=== PATIENT | female | born 1970 | race Caucasian/White ===

== ENCOUNTER → 2018-10-05 | Outpatient (CLI) | payer MEDICAID, SELFPAY ==
[2018-10-05 08:59] VITALS: BMI 41.8
[2018-10-05 10:15] LABS: Absolute Lymphocyte Count 2.31 X10^3/ul (0.83-4.51); Absolute Neutrophil Count 4.7 X10^3/uL (2.0-7.7); Basophil# 0.03 X10^3/uL; Basophil% 0.4 % (0-1); Eosinophil# 0.84 X10^3/uL; Eosinophils% 10.1 % (0-5); Hematocrit 43.6 % (37-47); Hemoglobin 14.8 g/dl (12.0-15.0); Lymphocyte # 2.31 X10^3/ul (4.0); Lymphocyte % 27.9 % (19-41); Mean Corp Hgb Conc 33.9 g/gl (32-36); Mean Corpuscular Hgb 30.9 pg (27.0-32.0); Monocyte# 0.42 X10^3/uL; Monocyte% 5.1 % (0-10); Neutrophil # 4.68 X10^3/uL (2.7-7.7); Neutrophil % 56.4 % (47-70); Platelet Count 210 K/mm3 (150-450); RBC Distribution Width CV 13.3 % (11.6-14.6); Red Blood Count 4.79 M/mm3 (4.2-5.4); White Blood Count 8.3 K/mm3 (4.4-11.0)
[2018-10-05 10:18] LABS: POSITIVE COUNT NO; POSITIVE DIFFERENTIAL NO; POSITIVE MORPHOLOGY NO
[2018-10-12 03:06] LABS: Alternaria tenuis 1.52 kU/L (Class III); Aspergillus fumigatus <0.10 kU/L (Class 0); Aspirgillus flavus Negative (Neg:<1:1); Aspirgillus fumigatus Negative (Neg:<1:1); Aspirgillus niger Negative (Neg:<1:1); Bermuda Grass 7.95 kU/L (Class IV); Cat Hair / Dander,Stand 2.93 kU/L (Class III); Cedar, Mountain 1.55 kU/L (Class III); Cladosporium herbarum <0.10 kU/L (Class 0); Cockroach, American <0.10 kU/L (Class 0); Cottonwood 4.22 kU/L (Class IV); D farinae Mite <0.10 kU/L (Class 0); D pteronyssinus <0.10 kU/L (Class 0); Dog Epithelia 3.67 kU/L (Class III); Elm, American White 4.78 kU/L (Class IV); Immunoglobulin E 576 IU/mL (6-495); Mulberry, White 1.15 kU/L (Class II); Pecan 6.91 kU/L (Class IV); Penicillium Notatum <0.10 kU/L (Class 0); Pigweed, Rough 6.86 kU/L (Class IV); Russian Thistle 2.93 kU/L (Class III); Sheep Sorrel 6.72 kU/L (Class IV); Sycamore, American 6.75 kU/L (Class IV); Timothy Grass 6.48 kU/L (Class IV)
[2018-10-12 08:33] LABS: Immunoglobulin E 626 IU/mL (6-495); Mouse Urine 1.16 kU/L (Class II)
== END | disposition home or self-care (01) ==
LOC: PAVLAB 09:56
PROVIDERS: Referring Provider Internal Medicine Critical Care Medicine; Visit Provider Internal Medicine Critical Care Medicine
DX: J45.909 Unspecified asthma, uncomplicated (principal)
CPT/HCPCS: 36415; 82785; 85025; 86003; 86606

== ENCOUNTER → 2019-02-22 11:10 | Outpatient (CLI) | payer MEDICAID, SELFPAY ==
[2018-10-05 08:59] VITALS: BMI 41.8
[2019-02-19 14:48] VITALS: BMI 41.8
[2019-02-22 11:15] VITALS: PULSE 100; PULSE 101; PULSE 102; PULSE 103; PULSE 99; O2SAT 95; O2SAT 96; O2SAT 97; O2SAT 99
--- NOTE | 2019-02-22 15:52 | PCM.PSN.6M ---
PSN 6 Minute Walk Test - 6 Minute Walk Test 6 Minute Walk Test: 6 Minute Walk Test PSN:6-Minute Walk Test Start: 02/22/19 11:25 Freq: Status: Active Protocol: RESP.6MINW Document 02/22/19 11:15 HG (Rec: 02/22/19 11:27 HG [id number]) 6 Minute Walk Test Date Performed 02/22/19 Time Performed 11:15 Height 5 ft 4 in Weight: 104.326 kg Weight in Pounds 230.[address]: Kyle Dudley Assistive device used: None Pre-test Oxygen Delivery Method Room Air Pulse Ox (%) 97 Pulse Rate (60-100 beats/min) 99 Dyspnea Bao Scale (0-10) 1 Exertion Bao Scale (6-20) 6 1st minute Oxygen Delivery Method Room Air Pulse Ox (%) 96 Pulse Rate (60-100 beats/min) 101 H 2nd minute Oxygen Delivery Method Room Air Pulse Ox (%) 96 Pulse Rate (60-100 beats/min) 100 3rd minute Oxygen Delivery Method Room Air Pulse Ox (%) 95 Pulse Rate (60-100 beats/min) 100 4th minute Oxygen Delivery Method Room Air Pulse Ox (%) 97 Pulse Rate (60-100 beats/min) 102 H 5th minute Oxygen Delivery Method Room Air Pulse Ox (%) 97 Pulse Rate (60-100 beats/min) 103 H 6th minute Oxygen Delivery Method Room Air Pulse Ox (%) 96 Pulse Rate (60-100 beats/min) 99 Post-test Oxygen Delivery Method Room Air Pulse Ox (%) 99 Pulse Rate (60-100 beats/min) 99 Dyspnea Bao Scale (0-10) 3 Exertion Bao Scale (6-20) 11 Full Laps Walked 17 Partial Lap, Number of Tiles Walked 0 Total Distance Walked (ft) 1003 - Interpretation Interpretation: The patient was able to Kellee 1003 feet over the course of 6 minutes on room air with no assistive devices or breaks. The patient experience no significant desaturation, but did have mild tachycardia consistent with deconditioning. - Recommendations Recommendations: No supplemental oxygen is indicated at this time.
== END ==
PROVIDERS: Referring Provider Internal Medicine Critical Care Medicine; Visit Provider Internal Medicine Critical Care Medicine
DX: J45.909 Unspecified asthma, uncomplicated (principal)
CPT/HCPCS: 94618

== ENCOUNTER → 2019-03-29 07:09 | Outpatient (CLI) | payer MEDICAID, SELFPAY ==
[2018-10-05 08:59] VITALS: BMI 41.8
[2019-02-19 14:48] VITALS: BMI 41.8
--- NOTE | 2019-04-02 07:33 | PFT ---
INTRODUCTION: The patient is a 49-year-old female that presents for pulmonary function studies secondary to a diagnosis of asthma. Respiratory therapy reports good patient effort. Bronchodilators were used during testing. INTERPRETATION: Forced expiration spirometry demonstrates the presence of a severe large airways obstructive ventilatory defect. There was a significant response to aerosolized bronchodilators noted, based upon change in both FEV1 and FVC. Spirograms are of good quality and do not plateau indicating slow emptying of the lungs. Body plethysmography was performed and reveals lung volumes to be within normal limits. Diffusing capacity by single breath CO is at the lower limits of normal. IMPRESSION: Partially reversible severe large airways obstructive ventilatory defect with preserved lung volumes and diffusing capacity at the lower limits of normal.
== END ==
PROVIDERS: Referring Provider Internal Medicine Critical Care Medicine; Visit Provider Internal Medicine Critical Care Medicine
DX: J45.909 Unspecified asthma, uncomplicated (principal)
CPT/HCPCS: 94060; 94726; 94729

== ENCOUNTER → 2020-01-03 09:01 | Outpatient (CLI) | payer MEDICAID, SELFPAY ==
[2020-01-03 08:24] VITALS: BMI 40.5
[2020-01-03 09:20] LABS: Absolute Lymphocyte Count 2.52 X10^3/uL (0.83-4.51); Absolute Neutrophil Count 5.5 X10^3/uL (2.0-7.7); Basophil# 0.08 X10^3/uL; Basophil% 0.9 % (0-1); Eosinophil# 0.35 X10^3/uL; Eosinophils% 3.9 % (0-5); Hematocrit 44.6 % (37-47); Hemoglobin 14.9 g/dL (12.0-15.0); Lymphocyte # 2.52 X10^3/ul (4.0); Lymphocyte % 28.1 % (19-41); Mean Corp Hgb Conc 33.4 g/dL (32-36); Mean Corpuscular Hgb 30.8 pg (27.0-32.0); Mean Corpuscular Volume 92.1 fL (81-99); Monocyte# 0.52 X10^3/uL; Monocyte% 5.8 % (0-10); NRBC Flagged by Analyzer 0 % (0-5); Neutrophil # 5.48 X10^3/uL (2.7-7.7); Neutrophil % 61.1 % (47-70); Platelet Count 230 K/mm3 (150-450); RBC Distribution Width CV 12.2 % (11.6-14.6); RBC Distribution Width SD 41.5 fl (35.1-43.9); Red Blood Count 4.84 M/mm3 (4.2-5.4)
== END ==
PROVIDERS: Referring Provider Nurse Practitioner Acute Care; Visit Provider Nurse Practitioner Acute Care
DX: J45.909 Unspecified asthma, uncomplicated (principal)
CPT/HCPCS: 36415; 85025

== ENCOUNTER 2020-08-22 10:52 | Emergency (ER) | payer MEDICAID, SELFPAY ==
[2020-08-21 13:14] VITALS: BMI 43.9
[2020-08-22 10:53] VITALS: BP 145/79; PULSE 88; RESP 18; TEMP 35.7; O2SAT 94; BMI 43.7
--- NOTE | 2020-08-22 11:04 | RAD_ITS ---
STUDY: X-RAY CHEST REASON FOR EXAM: Female, 50 years old. Sob. Recent diagnosis of Covid. TECHNIQUE: Single AP portable view of the chest. COMPARISON: None. FINDINGS: The lungs are clear and expanded. There is no demonstrated pleural abnormality. Normal size heart. Normal mediastinum and abel. Normal visualized pulmonary arteries. Normal visualized aortic arch and descending thoracic aorta. Normal visualized thoracic spine. Normal visualized ribs, clavicles, and shoulders. There is no demonstrated abnormality of the visualized soft tissue structures of the upper abdomen. RAD/Chest 1 View (Portable) IMPRESSION: Normal x-ray examination of the chest. Electronically Signed: Nima Virgen MD at 12:19 EDT , Service support ,
--- NOTE | 2020-08-22 11:08 | ED.DCSUM_ITS ---
History of Present Illness Chief Complaint: Shortness of Breath Informant: Patient Onset: Days Context: Gradual Onset Timing: Intermittent Current Severity: Moderate Maximum Severity: Moderate Narrative: Patient is a 50-year-old female with medical history significant of asthma who is not on home oxygen the presents to the emergency department shortness of breath. Patient was diagnosed Covid positive on Tuesday. She was actually scheduled for outpatient antibody infusion today. She states when she woke, she had cough and felt very short of breath. She did use her inhaler which seemed to help. She discussed this with her pulmonology office who told her she should be evaluated prior to the infusion. She states that she does feel much better. She denies any chest pain. She denies orthopnea. She denies any other systemic complaints. Prior similar symptoms: No Recent Illness/Hospitalization: No Past Medical History - Allergies and Home Meds Allergies/Adverse Reactions: Allergies No Known Allergies Allergy (Verified 08/22/20 10:53) Primary Care Physician: Samir Wolfe TELECOMMUNICATION SYSTEMS DESIGNER, TELECOMMUNICATION SYSTEMS DESIGNER-C [Primary Care Provider] - Prior records reviewed: Yes Past Medical History: - - Asthma, diabetes Surgical History: noncontributory Review of Systems General: Denies: Chills, Fever, Sweats Eyes: Denies: Visual changes - bilaterally, Diplopia ENT: Denies: Rhinorrhea, Sore throat Cardiovascular: Denies: Chest pain, Palpitations Respiratory: Reports: Dyspnea, Cough. Denies: Dyspnea on exertion Gastrointestinal: Denies: Abdominal pain, Nausea, Vomiting, Diarrhea, Melena, Hematochezia Genitourinary: Denies: Dysuria, Hematuria, Frequency Musculoskeletal: Denies: Back pain, Extremity Pain Skin: Denies: Rash, Wounds Neurological: Denies: Headache, Weakness, Numbness Physical Exam Vital Signs/Narrative: Vital Signs Temp Pulse Resp BP Pulse Ox 08/22/20 10:53 96.2 F L 88 18 145/79 H 94 Inital Vital Signs reviewed: Yes General: Well nourished, Well developed, No Acute Distress Head: Normocephalic, Atraumatic Eyes: Perrl, EOMI ENT: Moist mucous membranes, No rhinorrhea Neck: Supple, Nontender Cardiovascular: Regular rate, Regular rhythm, No murmurs Respiratory: No distress, Chest nontender, Wheezing Abdomen: Soft, Nontender, Nondistended, Normal bowel sounds Back: Nontender, Normal Inspection Extremities: Nontender, No edema Skin: Normal color, No rash Neurological: Alert, Oriented x3, Cranial nerves II-XII grossly intact, Normal Strength, Normal Sensation Psychological: Normal affect, Normal Mood Diagnostic/Tx/Re-eval Chest X-Ray - ED: 1 View, Read by ED Physician, Unchanged, Normal, Heart, Lungs, Mediastinum, Bony Structures, No Acute Disease - Medical Decision Making Patient is Covid positive. She presents with cough and shortness of breath. She is not hypoxic. She does have rhonchorous lung sounds. She was given a nebulized treatment with improvement. Chest x-ray was obtained. Was read by myself and the radiologist. There is no focal infiltrative process. I do feel the patient's underlying lung disease, she would benefit from a Decadron burst. I do feel that she is safe to continue her outpatient monoclonal antibody infusions. The patient is comfortable with this plan of care. Impression 1. COVID-19 2. Bronchospasm ED Disposition - Plan for ED Patient: Instructions: Coronavirus Disease 2019 (COVID-19): Caring for Yourself or Others Prescriptions: Dexamethasone [Decadron] 6 mg PO DAILY 5 Days #5 tablet Prescription Printed Referrals: Samir Wolfe NP, TELECOMMUNICATION SYSTEMS DESIGNER-C [Primary Care Provider] -
[2020-08-22] MEDS: Ipratropium/Albuterol Sulfate 3 ML AMPUL.NEB INHALATION (11:16)
[2020-08-22 11:18] VITALS: PULSE 60; RESP 9
[2020-08-22] MEDS: dexAMETHasone 2 MG TABLET 6 MG PO (12:02)
[2020-08-22 12:04] VITALS: PULSE 69; RESP 16; O2SAT 98
[2020-08-22 12:06] VITALS: O2SAT 98
[2020-08-22 12:22] VITALS: BP 132/47; PULSE 76; RESP 20; TEMP 36.5; O2SAT 97
== END 2020-08-22 12:28 | disposition home or self-care (01) ==
LOC: ED 11:45
PROVIDERS: Emergency Provider Emergency Medicine; PCP Nurse Practitioner Primary Care
DX: U07.1 COVID-19 (principal); E11.9 Type 2 diabetes mellitus without complications; J45.909 Unspecified asthma, uncomplicated; Z79.899 Other long term (current) drug therapy
CPT/HCPCS: 71045; 94640; 99283

== ENCOUNTER 2020-08-22 14:13 | Outpatient (CLI) | payer MEDICAID, SELFPAY ==
[2020-08-21 13:14] VITALS: BMI 43.9
[2020-08-22] VITALS (7 sets, daily range): BP systolic 110–134; BP diastolic 67–84; PULSE 73–84; RESP 16–18; TEMP 36.6–37.1; O2SAT 93–95; BMI 43.7; BMI 43.6
== END 2020-08-22 16:48 | disposition home or self-care (01) ==
LOC: ICUOUT 14:14 → ICU 14:16
PROVIDERS: PCP Nurse Practitioner Primary Care; Referring Provider Nurse Practitioner Acute Care; Visit Provider Nurse Practitioner Acute Care
DX: U07.1 COVID-19 (principal)
CPT/HCPCS: 71045; 94640; 99283; J7050; M0243; Q0240

== ENCOUNTER 2020-11-13 16:21 | Inpatient (IN) | payer MEDICAID, SELFPAY ==
[2020-10-01 07:50] VITALS: BMI 43.4
[2020-11-13] VITALS (8 sets, daily range): BP systolic 153–157; BP diastolic 71–80; PULSE 84–99; RESP 18–22; TEMP 36.3–36.7; O2SAT 94–96; BMI 42.4
--- NOTE | 2020-11-13 16:14 | HP.PCM.HOS_ITS ---
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 Patient was admitted at [facility] on 11/09/2020 for shortness of breath and was managed for acute asthma exacerbation. Patient has been on IV Solu-Medrol and breathing treatments there since admission but she was not improving and was wheezing. BNP done there was only around 50 and not elevated. Since patient was not improving, she was transferred to [facility] for evaluation by her police department secretary. Patient is on Fasenra at home but states he does not think it is been helping much. Patient was very dejected because she says she has an upcoming bariatric surgery later this month at [facility] and she has to be off prednisone for at least 14 days before the surgery. She is very worried that with this asthma exacerbation not improving, she may not be able to have any surgery. She denies having any exposure to allergens at home and says she has a cath but she is no usually around the cat that much. She does not smoke and is not exposed to any secondhand smoke as well. CTA of the chest done at [facility] was negative for any evidence of PE and showed by basilar scarring with no effusion or pneumothorax. 2D echo was also done there, but reading is not yet available. She is being admitted to be managed for acute asthma exacerbation that is refractory to treatment. [facility] Medical History Asthma Bronchitis Home Medications albuterol sulfate 2.5 mg INHALATION Q6H PRN PRN ml 10/04/18 [History Last Taken Unknown] ipratropium 0.5 mg-albuterol 3 mg (2.5 mg base)/3 mL nebulization soln 3 ml INHALATION Q4H PRN PRN #180 ml 02/04/20 [Rx Last Taken Unknown] benralizumab 30 mg/mL subcutaneous auto-injector 30 mg SC Q8W #1 ml 03/24/20 [Rx Last Taken Unknown] Disability Placard #1 ea 10/01/20 [Rx Last Taken Unknown] albuterol sulfate 90 mcg/actuation aerosol inhaler 2 puff INHALATION Q4H PRN #18 g 10/21/20 [Rx Last Taken Unknown] insulin lispro protamin-lispro SUBCUT 11/13/20 [History Last Taken Unknown] Allergy/AdvReac Type Severity Reaction Status Date / Time No Known Allergies Allergy Verified 10/01/20 13:17 Surgical History H/O: hysterectomy Hernia History of adenoidectomy History of tonsillectomy Social History (Updated 11/13/20 @ 16:33 by Marybeth Dickey) household members: significant other and children pets and animals: Yes (cat) history of recent travel: Yes ([place]) Smoking Status: Former smoker Tobacco: How many years used: 6 how long ago did patient quit smokin, 1ppd second hand exposure: Yes ROS Constitutional Constitutional: Denies change in weight, chills, fatigue, fever(s), malaise or night sweats Eyes Eyes: Denies change in vision or double vision Cardiovascular Cardiovascular: Reports dyspnea on exertion; Denies chest pain, edema, lightheadedness, orthopnea, palpitations, paroxysmal nocturnal dyspnea, rapid heart rate or syncope Respiratory/Chest Respiratory/Chest: Reports cough, dyspnea, shortness of breath at rest, shortness of breath with exertion and wheezing; Denies excessive phlegm production, hemoptysis or productive cough Gastrointestinal Gastrointestinal: Denies abdominal pain, constipation or diarrhea Genitourinary Genitourinary: Denies burning urination or dysuria Musculoskeletal Musculoskeletal: Denies arthralgias or back pain Psychiatric Psychiatric: Denies anxiety or depression Endocrine Endocrinology: Denies change in body appearance Hematologic/Lymphatic Hematologic/Lymphatic: Denies anemia Allergic/Immunologic Allergic/Immunologic: Reports asthma Vital Signs Vital Signs Vital Signs: 11/13/20 16:08 Respiratory Effort Pursed Lip Respiratory Pattern Tachypnea Pulse Ox 96 Oxygen Delivery Method Room Air Weight Weight: 247 lb Body Mass Index (BMI) 42.4 Physical Exam Const alert, oriented x3 and no apparent distress General Appearance: cooperative HEENT normocephalic, head/scalp atraumatic and hearing grossly normal bilaterally Eyes PERRL, EOMs intact bilaterally and conjunctivae normal Neck no lymphadenopathy, supple and no JVD Resp Resp Narrative: mildly diminished breath sounds bibasally, very coarse rhonchi and wheezing in all lung burroughs, on room air Cardio regular rate, regular rhythm, S1 normal heart sound, S2 normal heart sound and no murmurs GI normal to inspection, nondistended, normoactive bowel sounds, soft to palpation, non-tender and non-distended Extremity normal to inspection, full ROM and no clubbing, cyanosis or edema Peripheral Pulses: Yes pulses 2+ throughout Skin no rashes or lesions noted Neuro oriented x3 Sensorium / Orientation: awake and alert Psych affect normal Assessment & Plan Assessment/Plan (1) Acute asthma exacerbation: PLAN: #Acute asthma exacerbation refractory to treatment * admitted as a transfer from [facility] * admit to med surg * start IV solumedrol 40mg q8 * breathing treatment wtih bronchodilators * consult pulmonology * diurese with IV lasix * 2D echo:done at [facility]; reading pending * continue benralizumab injections * #MARCO: on CPAP; says her machine was recently recalled. #Type 2 diabetes mellitus * on insulin lispro prn * insulin sliding scale; accuchecks ACHS #morbid obesity: * complicates acute care, prognosis and expected recovery. * Says she is scheduled for bariatric surgery at [facility] at the end of November. DVT prophylaxis: lovenox Code status: full code * Patient counseled extensively about different types of CODE STATUS including full code, DNR CCA and DNR CCA. Patient elects to be full code. Total [id number] time 16 minutes. Charges/Coding Visit Charges Inpatient E&M: 81553 Init Hosp L3 Procedures Hospitalists Procedures: 86134 Advncd Care Plan 30 Min
[2020-11-13 17:11] LABS: Bedside Glucose 268 mg/dL (70-110)
[2020-11-13 17:27] LABS: Troponin-I HS 13.6 pg/mL (3.0-53.7)
[2020-11-13] MEDS: 0.9% Saline Lock 10 ML Syringe IV ×2 (18:00→21:50)
[2020-11-13] MEDS: Furosemide 40 MG/4 ML Vial IV (18:00)
[2020-11-13 19:53] LABS: Troponin-I HS 12.2 pg/mL (3.0-53.7)
[2020-11-13] MEDS: Ipratropium/Albuterol Sulfate 3 ML AMPUL.NEB INHALATION ×2 (20:03→23:30)
[2020-11-13 21:45] LABS: Bedside Glucose 453 mg/dL (70-110)
[2020-11-13 22:18] LABS: Glucose 409 mg/dL (74-106)
[2020-11-13] MEDS: Insulin Lispro 100 UNIT/ML INSULN.PEN SC (22:23)
[2020-11-13] MEDS: MELATONIN 3 MG TABLET PO (22:27)
[2020-11-13 22:28] LABS: Troponin-I HS 10.6 pg/mL (3.0-53.7)
--- NOTE | 2020-11-13 23:55 | CPS ---
Pt. performed chest physiotherapy with PEP device after breathing tx. Pt. was able to finally cough productively (clear, creamy & thin sputum)
[2020-11-14] VITALS (16 sets, daily range): BP systolic 124–153; BP diastolic 74–113; PULSE 80–118; RESP 16–20; TEMP 36–36.9; O2SAT 93–95
[2020-11-14] MEDS: Ipratropium/Albuterol Sulfate 3 ML AMPUL.NEB INHALATION ×5 (03:14→18:45)
[2020-11-14] MEDS: Insulin Lispro 100 UNIT/ML INSULN.PEN SC ×2 (06:44→16:49)
[2020-11-14] MEDS: 0.9% Saline Lock 10 ML Syringe IV ×5 (06:45→22:48)
[2020-11-14 06:56] LABS: Absolute Lymphocyte Count 2.13 X10^3/uL (0.83-4.51); Absolute Neutrophil Count 13.1 X10^3/uL (2.0-7.7); Basophil# 0.06 X10^3/uL; Basophil% 0.4 % (0-1); Hematocrit 43.7 % (37-47); Hemoglobin 14.7 g/dL (12.0-15.0); Lymphocyte # 2.13 X10^3/ul (0.83-4.51); Lymphocyte % 12.9 % (19-41); Mean Corp Hgb Conc 33.6 g/dL (32-36); Mean Corpuscular Hgb 30.4 pg (27.0-32.0); Mean Corpuscular Volume 90.5 fL (81-99); Mean Platelet Vol. 9.9 fl (6.2-12.0); Monocyte# 0.75 X10^3/uL; Monocyte% 4.5 % (0-10); NRBC Flagged by Analyzer 0 % (0-5); Neutrophil # 13.08 X10^3/uL (2.7-7.7); Neutrophil % 79.2 % (47-70); Platelet Count 253 K/mm3 (150-450); RBC Distribution Width CV 12.8 % (11.6-14.6); RBC Distribution Width SD 42.6 fl (35.1-43.9); Red Blood Count 4.83 M/mm3 (4.2-5.4); White Blood Count 16.5 K/mm3 (4.4-11.0)
[2020-11-14 07:00] LABS: Bedside Glucose 346 mg/dL (70-110)
[2020-11-14 07:30] LABS: Anion Gap 8 (5-15); BUN 26 mg/dL (7-18); Calcium,Total 9.7 mg/dL (8.5-10.1); Chloride 99 mmol/L (98-107); Creatinine, Serum 1.13 mg/dL (0.55-1.02); EST Glomerular Filtration Rate 55 mL/min (>60); Est Glom Filt Rate - Afr Amer 66 mL/min (>60); Estimated Creatinine Clearance 52.58 ml/min; Glucose 338 mg/dL (74-106); Potassium 3.9 mmol/L (3.5-5.1); Sodium Level 133 mmol/L (136-145)
--- NOTE | 2020-11-14 09:32 | CON.PCM.CC_ITS ---
Assessment & Plan Assessment/Plan (1) Acute asthma exacerbation: (2) Seasonal allergies: (3) MARCO (obstructive sleep apnea): PLAN: RECOMMENDATIONS: 1. Await echocardiogram from [facility] 2. Initiate AutoPap therapy 3. Continue with diuretics as tolerated 4. No Biologics while hospitalized 5. Add Lantus for hyperglycemia 6. Requested images from CTA completed at [facility] for personal review IMPRESSIONS: 1. Acute asthma exacerbation Working diagnosis is acute asthma exacerbation. However, patient has re ported over the 6 months prior to hospitalization that steroids are not working anymore. This would be concerning for a secondary mimic complicating overall condition. Patient can be continued on bronchodilators and steroids for now. However work-up for mimicker such as congestive heart failure, pulmonary hypertension, vocal cord dysfunction and bronchiectasis. Patient had an echocardiogram at [facility]. Await results. Will obtain a walking oximetry to see if patient has significant desaturation with ambulation. CTA was recently completed at outside facility and did not mention bronchiectasis, but this will have to be reviewed as an outpatient. Elevated BNP is not away seen with diastolic dysfunction, so would continue with diuretics for now. 2. Uncontrolled diabetes mellitus Patient with frequent prednisone burst leading to uncontrolled diabetes mellitus. Blood sugars are currently over 300 and likely leading to an element of patient's discomfort with going home. Will initiate Lantus therapy. Sliding scale insulin in the interim. 3. Morbid obesity/uncontrolled MARCO/poor compliance with follow-up visits Complicates care, management, recovery and prognosis. Patient can be initiated on AutoPap with sleep. Patient did have significant desaturation during sleep study, which can lead to the development of diastolic dysfunction and pulmonary hypertension with noncompliance. Patient has not been following up in the office and cancels most of her appointments. Stressed the importance of outpatient follow-up to avoid inpatient hospitalizations. Patient is planning on having bariatric surgery, which should help her overall condition, but is complicated by her frequent need for steroids. HPI Consult Data Date of Consult: 11/14/20 HPI Narrative HPI Narrative: ALBERTO WONG is a 50 F, with past medical history listed below, who presents to [facility] on 11/13/2020 as a transfer from [facility] secondary to concerns for pulmonary evaluation. Patient reportedly was admitted at [facility] on 11/09/2020 secondary to shortness of breath and had been managed as an acute asthma exacerbation with steroids, bronchodilators, but no supplemental oxygen. BNP on presentation was noted to be around 50, but patient continued to have wheezing throughout the hospital stay, so requested transfer to [facility]. Patient does normally see Dr. Dudley in our office and is on Fasenra at baseline. Patient does have steroids at home and admits that she started steroids on her own prior to being hospitalized at [facility]. Patient estimates that she has been on 60 mg of prednisone for over a week without improvement. Patient denies any noxious exposures such as allergies or tobacco smoke. Patient did have a CTA at [facility] that reportedly showed no PE, but basilar scarring. Disc was not available for review. Patient reportedly had an echocardiogram completed just prior to transfer, but report was not available for review. Upon being admitted at [facility], patient did receive Lasix therapy. This morning, patient states that she is relatively unchanged compared to previous. Patient continues to have significant wheezing and no supplemental oxygen requirements. On further discussion, patient states that on the initial dose of Fasenra she felt amazing. Patient states that since that time she has had multiple episodes of shortness of breath that have not been responsive to steroid therapy. Patient also had concerns that her new CPAP machine was causing her exacerbation so she has not been overly compliant with therapy. Patient also reported concerns about having to delay her bariatric surgery secondary to need for steroid therapy. Patient states that she has been rescheduled to the end of November, but feels that she is going to have to be off of steroids soon in order to get this weight off. Patient does state that she started to use her CPAP recently to prepare for her surgery and feels that the CPAP has caused some issues with her breathing. Review of outside literature shows patient was placed on AutoPap secondary to an AHI of 32 with minimal saturations of 84%. Review of systems otherwise negative from a constitutional, HEENT, respiratory, cardiovascular, GI, genitourinary, musculoskeletal, skin, neurologic, psychia tric and hematologic system unless stated above. [facility] Medical History Asthma Bronchitis Home Medications albuterol sulfate 2.5 mg INHALATION Q6H PRN PRN ml 10/04/18 [History Last Taken Unknown] ipratropium 0.5 mg-albuterol 3 mg (2.5 mg base)/3 mL nebulization soln 3 ml INHALATION Q4H PRN PRN #180 ml 02/04/20 [Rx Last Taken Unknown] benralizumab 30 mg/mL subcutaneous auto-injector 30 mg SC Q8W #1 ml 03/24/20 [Rx Last Taken Unknown] Disability Placard #1 ea 10/01/20 [Rx Last Taken Unknown] albuterol sulfate 90 mcg/actuation aerosol inhaler 2 puff INHALATION Q4H PRN #18 g 10/21/20 [Rx Last Taken Unknown] insulin lispro protamin-lispro SUBCUT 11/13/20 [History Last Taken Unknown] Allergy/AdvReac Type Severity Reaction Status Date / Time No Known Allergies Allergy Verified 10/01/20 13:17 Surgical History H/O: hysterectomy Hernia History of adenoidectomy History of tonsillectomy Social History household members: significant other and children pets and animals: Yes (cat) history of recent travel: Yes ([place]) Smoking Status: Former smoker Tobacco: How many years used: 6 how long ago did patient quit smokin, 1ppd second hand exposure: Yes ROS ROS Narrative See HPI Physical Exam Const alert, oriented x3, no apparent distress and well nourished General Appearance: cooperative and well developed Nutritional Appearance: morbidly obese HEENT normocephalic, head/scalp atraumatic and moist oral mucous membranes Eyes PERRL and EOMs intact bilaterally Neck full ROM and no lymphadenopathy Chest inspection of chest normal Resp normal respiratory effort and no use of accessory muscles Effort and Inspection: able to speak in complete sentences and audible wheezes Auscultation: wheezes throughout and diminished lung sounds; Negative for rales or rhonchi Percussion: Negative for dullness Cardio regular rate, regular rhythm, S1 normal heart sound, S2 normal heart sound, no murmurs, no rub and no gallops Cardio Narrative: Normal sinus rhythm on telemetry GI normal to inspection, nondistended, normoactive bowel sounds no CVA tenderness Extremity General Extremity: edema bilateral lower extremity Details: trace; Negative for cyanosis Peripheral Pulses: Yes pulses 2+ throughout Skin no rashes or lesions noted Neuro oriented x3, CN's II-XII intact bilaterally, moves all extremities and no focal motor deficits Psych cooperative and affect normal Lab / Micro Data Result Diagrams: 11/14/20 06:41 11/14/20 06:41 Labs: Laboratory Results - last 24 hr 11/13/20 11/13/20 11/13/20 17:00 17:04 19:08 WBC RBC Hgb Hct MCV MCH MCHC RDW Std Deviation RDW Coeff of Rut Plt Count MPV Immature Gran % (Auto) Neut % (Auto) Lymph % (Auto) [place]osa % (Auto) Eos % (Auto) Baso % (Auto) Absolute Neuts (auto) Absolute Lymphs (auto) Nucleated RBC % Sodium Potassium Chloride Carbon Dioxide Anion Gap BUN Creatinine Estim Creat Clear Calc Est GFR (MDRD) Af Amer Est GFR (MDRD) Non-Af BUN/Creatinine Ratio Glucose Calcium Troponin I High Sens 13.6 12.2 POC Glucose 268 H 11/13/20 11/13/20 11/13/20 21:20 21:57 21:57 WBC RBC Hgb Hct MCV MCH MCHC RDW Std Deviation RDW Coeff of Rut Plt Count MPV Immature Gran % (Auto) Neut % (Auto) Lymph % (Auto) [place] % (Auto) Eos % (Auto) Baso % (Auto) Absolute Neuts (auto) Absolute Lymphs (auto) Nucleated RBC % Sodium Potassium Chloride Carbon Dioxide Anion Gap BUN Creatinine Estim Creat Clear Calc Est GFR (MDRD) Af Amer Est GFR (MDRD) Non-Af BUN/Creatinine Ratio Glucose 409 H Calcium Troponin I High Sens 10.6 POC Glucose 453 H* 11/14/20 11/14/20 11/14/20 06:41 06:41 06:43 WBC 16.5 H RBC 4.83 Hgb 14.7 Hct 43.7 MCV 90.5 MCH 30.4 MCHC 33.6 RDW Std Deviation 42.6 RDW Coeff of Rut 12.8 Plt Count 253 MPV 9.9 Immature Gran % (Auto) 3.000 H Neut % (Auto) 79.2 H Lymph % (Auto) 12.9 L [place] % (Auto) 4.5 Eos % (Auto) 0.0 Baso % (Auto) 0.4 Absolute Neuts (auto) 13.1 H Absolute Lymphs (auto) 2.13 Nucleated RBC % 0 Sodium 133 L Potassium 3.9 Chloride 99 Carbon Dioxide 26.0 Anion Gap 8 BUN 26 H Creatinine 1.13 H Estim Creat Clear Calc 52.58 Est GFR (MDRD) Af Amer 66 Est GFR (MDRD) Non-Af 55 L BUN/Creatinine Ratio 23.0 H Glucose 338 H Calcium 9.7 Troponin I High Sens POC Glucose 346 H Charges/Coding Visit Charges Inpatient E&M: 93518 Init Hosp L3
[2020-11-14] MEDS: Enoxaparin 40 MG/0.4 ML Syringe SC (09:53)
[2020-11-14] MEDS: Furosemide 40 MG/4 ML Vial IV ×2 (09:54→18:25)
--- NOTE | 2020-11-14 10:13 | NURSING ---
called [facility] and requested they send CTA records
[2020-11-14 11:41] LABS: Bedside Glucose 490 mg/dL (70-110)
--- NOTE | 2020-11-14 12:37 | PCM.PN.HOSP ---
Documented by User: Donnell CHOWDARY 11/14/20 12:52 Subjective Subjective Patient is a 50-year-old female comfortably resting in bed, alert and oriented x3. Patient still reports feeling short of breath and only reports slight improvement from admission. Denies chest pain, palpitations, sputum production, hemoptysis, fever, chills, N/V/D. Objective Data Objective Data Vital Signs: Vital Signs Temp Pulse Resp BP Pulse Ox 96.8 F L 118 H 20 H 143/113 H 93 11/14/20 09:38 11/14/20 11:31 11/14/20 11:31 11/14/20 09:38 11/14/20 09:41 Oxygen Delivery Method Room Air Weight: 247 lb Body Mass Index (BMI) 42.4 Intake & Output: Intake and Output for Last 24 Hours 11/12/20 11/13/20 11/14/20 23:59 23:59 23:59 Intake Total 800 / 800 1000 / 1000 Output Total 400 / 400 1500 / 1500 Balance 400 / 400 -500 / -500 Lab / Micro Data Result Diagrams: 11/14/20 06:41 11/14/20 06:41 Labs: Laboratory Results - last 24 hr 11/13/20 11/13/20 11/13/20 17:00 17:04 19:08 WBC RBC Hgb Hct MCV MCH MCHC RDW Std Deviation RDW Coeff of Rut Plt Count MPV Immature Gran % (Auto) Neut % (Auto) Lymph % (Auto) [place] % (Auto) Eos % (Auto) Baso % (Auto) Absolute Neuts (auto) Absolute Lymphs (auto) Nucleated RBC % Sodium Potassium Chloride Carbon Dioxide Anion Gap BUN Creatinine Estim Creat Clear Calc Est GFR (MDRD) Af Amer Est GFR (MDRD) Non-Af BUN/Creatinine Ratio Glucose Calcium Troponin I High Sens 13.6 12.2 POC Glucose 268 H 11/13/20 11/13/20 11/13/20 21:20 21:57 21:57 WBC RBC Hgb Hct MCV MCH MCHC RDW Std Deviation RDW Coeff of Rut Plt Count MPV Immature Gran % (Auto) Neut % (Auto) Lymph % (Auto) [place] % (Auto) Eos % (Auto) Baso % (Auto) Absolute Neuts (auto) Absolute Lymphs (auto) Nucleated RBC % Sodium Potassium Chloride Carbon Dioxide Anion Gap BUN Creatinine Estim Creat Clear Calc Est GFR (MDRD) Af Amer Est GFR (MDRD) Non-Af BUN/Creatinine Ratio Glucose 409 H Calcium Troponin I High Sens 10.6 POC Glucose 453 H* 11/14/20 11/14/20 11/14/20 06:41 06:41 06:43 WBC 16.5 H RBC 4.83 Hgb 14.7 Hct 43.7 MCV 90.5 MCH 30.4 MCHC 33.6 RDW Std Deviation 42.6 RDW Coeff of Rut 12.8 Plt Count 253 MPV 9.9 Immature Gran % (Auto) 3.000 H Neut % (Auto) 79.2 H Lymph % (Auto) 12.9 L [place] % (Auto) 4.5 Eos % (Auto) 0.0 Baso % (Auto) 0.4 Absolute Neuts (auto) 13.1 H Absolute Lymphs (auto) 2.13 Nucleated RBC % 0 Sodium 133 L Potassium 3.9 Chloride 99 Carbon Dioxide 26.0 Anion Gap 8 BUN 26 H Creatinine 1.13 H Estim Creat Clear Calc 52.58 Est GFR (MDRD) Af Amer 66 Est GFR (MDRD) Non-Af 55 L BUN/Creatinine Ratio 23.0 H Glucose 338 H Calcium 9.7 Troponin I High Sens POC Glucose 346 H 11/14/20 11:33 WBC RBC Hgb Hct MCV MCH MCHC RDW Std Deviation RDW Coeff of Rut Plt Count MPV Immature Gran % (Auto) Neut % (Auto) Lymph % (Auto) [place] % (Auto) Eos % (Auto) Baso % (Auto) Absolute Neuts (auto) Absolute Lymphs (auto) Nucleated RBC % Sodium Potassium Chloride Carbon Dioxide Anion Gap BUN Creatinine Estim Creat Clear Calc Est GFR (MDRD) Af Amer Est GFR (MDRD) Non-Af BUN/Creatinine Ratio Glucose Calcium Troponin I High Sens POC Glucose 490 H* Physical Exam Const alert, oriented x3 and no apparent distress Nutritional Appearance: morbidly obese HEENT head/scalp atraumatic, moist oral mucous membranes and oropharynx normal Head and Scalp: normocephalic Eyes EOMs intact bilaterally and conjunctivae normal Neck no lymphadenopathy, supple and no JVD Resp normal respiratory effort, no retractions and no use of accessory muscles Cardio regular rate, regular rhythm, no murmurs and no JVD GI normal to inspection, nondistended, normoactive bowel sounds, soft to palpation and non-tender Extremity normal to inspection, full ROM and no clubbing, cyanosis or edema Skin no rashes or lesions noted, no wounds, skin turgor normal and no jaundice Neuro CN's II-XII intact bilaterally Psych affect normal Assessment & Plan Assessment/Plan (1) Acute asthma exacerbation: (2) MARCO (obstructive sleep apnea): (3) Obesity: QUALIFIERS: Body mass index: BMI 40.0-44.9 Obesity classification: adult class 3 (BMI >= 40) Obesity type: due to excess calories Serious obesity comorbidity presence: with serious comorbidity Qualified Code(s): E66.01 - Morbid (severe) obesity due to excess calories; Z68.41 - Body mass index [BMI]40.0-44.9, adult (4) Asthma: QUALIFIERS: Asthma complication type: with acute exacerbation Asthma persistence: persistent Asthma severity: severe Qualified Code(s): J45.51 - Severe persistent asthma with (acute) exacerbation PLAN: Day two: See subjective. Discharge planning: No home health care needs identified, patient to be discharged home when medically ready. 1) Acute asthma exacerbation. Pulmonology following: Continue treating for acute asthma exacerbation however consider other diagnoses given chronicity of shortness of breath. Awaiting echocardiogram results from [facility] to assess for CHF or pulmonary hypertension. Plan; continue bronchodilators, steroid and Lasix, continue benralizumab injections. 2) MARCO Patient has CPAP at home, however his CPAP was recently recalled, patient is working with the company to obtain a new machine. 3) DM2 #1 and chronicity of steroid treatments complicates diabetes care. Continue with basal and sliding scale insulin, obtain hemoglobin A1c, continue Accu-Cheks 4) Weight is currently 247 pounds with a BMI of 42.4. Patient is scheduled for bariatric surgery at [facility] on December 02, 2020. Patient was advised that she needs to be off of steroid therapy for 7 to 10 days prior to surgery. DVT prophylaxis - lovenox Patient seen by Donnell Chao PA-C, under the supervision of Dr. Mota. Documented by User: Dr. Christiana Mota MD 11/14/20 14:58 Objective Data Lab / Micro Data Result Diagrams: 11/14/20 06:41 11/14/20 06:41 Charges/Coding Addendum Addendum: Patient seen by Donnell Chao PA-C under my supervision Patient seen and examined. She still complains of shortness of breath and wheezing and does not feel like she is improving. Review of systems otherwise negative. She has otherwise remained hemodynamically stable. O/E: Const alert, oriented x3 and no apparent distress General Appearance: cooperative HEENT normocephalic, head/scalp atraumatic and hearing grossly normal bilaterally Eyes PERRL, EOMs intact bilaterally and conjunctivae normal Neck no lymphadenopathy, supple and no JVD Resp Resp Narrative: mildly diminished breath sounds bibasally, few coarse rhonchi and mild wheezing in all lung burroughs, on room air Cardio regular rate, regular rhythm, S1 normal heart sound, S2 normal heart sound and no murmurs GI normal to inspection, nondistended, normoactive bowel sounds, soft to palpation, non-tender and non-distended Extremity normal to inspection, full ROM and no clubbing, cyanosis or edema Peripheral Pulses: Yes pulses 2+ throughout Skin no rashes or lesions noted Neuro oriented x3 Sensorium / Orientation: awake and alert Psych affect normal Plan is to continue diuresing with IV lasix; 2D echo done at [facility] has been requested. Continue breathing treatments with bronchodilators. Continue IV Solu-Medrol. Pulmonology consulted. Appreciate recs. Patient started on lantus o/a of hyperglycemia from steroid use. Rest as per Donnell Geller P-see his note which I reviewed and endorsed. Visit Charges Inpatient E&M: 11586 Subs Hosp L3
[2020-11-14] MEDS: Nystatin Powder 15gm Bottle 1 APPLIC TOPICAL ×2 (12:39→22:48)
[2020-11-14] MEDS: LORazepam 1 MG Tablet PO ×2 (12:52→19:25)
--- NOTE | 2020-11-14 12:55 | CASEMGMT ---
SHEN LEDESMA Assessment: Face to Face with pt for initial transition planning/care coordination assessment. RN BALTAZAR introduced self and role at [facility], pt voices understanding and consents to assessment. Pt is A/O x4 and answers all questions appropriately at this time. Pt sitting up in chair in no distress. Care providers, pharmacy, and demographics verified/updated. Admitting Dx: acute ashtma exac PCP:Samir Arellano [employer] Specialists: Luis Enrique pulashley; Zach for sleep studies; Cecily, gastric bypass physician- pt is in the works of this workup. [facility]erred [facility]acy[facility] Insurance: [employer] Prescription Benefit: yes LW/HPOA: Pt denies having LW/DPOA LNOK: Bonny Rey, sister Living Arrangements: Pt lives with her 2 daughters and her boyfriend in a two story house with 6 steps to enter with rail. Pt is I in ADL's and denies concerns at home. Transportation: Pt drives self and denies concerns with transportation. DME/HHC: Pt has nebulizers at home. Pt had a CPAP that was recalled. ([employer]) She states that her customer service supervisor is aware of this and working on a new one. Pt denies previous HHC. Pt states no concerns with going home at time of dc. Pt states no further concerns/needs. CM to follow. Advised pt to ask CM if any further question/concerns/needs arise, voices understanding. Pt Goal: Home Plan: Home
[2020-11-14] MEDS: Insulin Lispro 100 UNIT/ML INSULN.PEN 15 UNIT SC (13:07)
[2020-11-14 13:23] LABS: Hemoglobin A1c 7.7 % (3.8-5.6)
[2020-11-14 15:51] LABS: Bedside Glucose 414 mg/dL (70-110)
[2020-11-14] MEDS: Acetaminophen 325 MG Tablet 650 MG PO (19:25)
[2020-11-14] MEDS: Senna/Docusate Sodium 1 Tablet 2 TABLET PO (21:24)
[2020-11-14 21:36] LABS: Bedside Glucose > 500 mg/dL (70-110)
[2020-11-14 22:34] LABS: Glucose 500 mg/dL (74-106)
[2020-11-14] MEDS: Insulin Lispro 100 UNIT/ML INSULN.PEN 18 UNIT SC (22:51)
[2020-11-15] VITALS (16 sets, daily range): BP systolic 138–170; BP diastolic 76–93; PULSE 73–113; RESP 16–22; TEMP 36.4–36.7; O2SAT 93–98
[2020-11-15] MEDS: LORazepam 1 MG Tablet PO ×2 (00:07→19:53)
[2020-11-15 05:59] LABS: Absolute Lymphocyte Count 1.64 X10^3/uL (0.83-4.51); Absolute Neutrophil Count 13.9 X10^3/uL (2.0-7.7); Basophil# 0.04 X10^3/uL; Basophil% 0.2 % (0-1); Hematocrit 43.6 % (37-47); Hemoglobin 14.8 g/dL (12.0-15.0); Lymphocyte # 1.64 X10^3/ul (0.83-4.51); Lymphocyte % 9.7 % (19-41); Mean Corp Hgb Conc 33.9 g/dL (32-36); Mean Corpuscular Hgb 30.6 pg (27.0-32.0); Mean Corpuscular Volume 90.1 fL (81-99); Mean Platelet Vol. 9.9 fl (6.2-12.0); Monocyte# 0.82 X10^3/uL; Monocyte% 4.8 % (0-10); NRBC Flagged by Analyzer 0 % (0-5); Neutrophil # 13.85 X10^3/uL (2.7-7.7); Neutrophil % 81.7 % (47-70); Platelet Count 248 K/mm3 (150-450); RBC Distribution Width CV 12.6 % (11.6-14.6); RBC Distribution Width SD 41.6 fl (35.1-43.9); Red Blood Count 4.84 M/mm3 (4.2-5.4)
[2020-11-15] MEDS: 0.9% Saline Lock 10 ML Syringe IV ×3 (06:24→18:09)
[2020-11-15] MEDS: Insulin Lispro 100 UNIT/ML INSULN.PEN SC ×4 (06:30→22:59)
[2020-11-15 06:41] LABS: Anion Gap 7 (5-15); BUN 28 mg/dL (7-18); BUN/Creat Ratio 24.6 RATIO (10-20); Calcium,Total 10.1 mg/dL (8.5-10.1); Chloride 96 mmol/L (98-107); Creatinine, Serum 1.14 mg/dL (0.55-1.02); EST Glomerular Filtration Rate 54 mL/min (>60); Est Glom Filt Rate - Afr Amer 65 mL/min (>60); Estimated Creatinine Clearance 52.11 ml/min; Glucose 363 mg/dL (74-106); Potassium 4.6 mmol/L (3.5-5.1); Sodium Level 134 mmol/L (136-145)
[2020-11-15 06:46] LABS: Bedside Glucose 367 mg/dL (70-110)
[2020-11-15] MEDS: Ipratropium/Albuterol Sulfate 3 ML AMPUL.NEB INHALATION ×4 (06:47→23:17)
--- NOTE | 2020-11-15 06:50 | PCM.PN.INT ---
Assessment & Plan Assessment/Plan (1) Acute asthma exacerbation: (2) Seasonal allergies: (3) MARCO (obstructive sleep apnea): PLAN: RECOMMENDATIONS: 1. Continue diuretics as tolerated 2. Increase Lantus for hyperglycemia 3. Transition to prednisone therapy 4. No Biologics while hospitalized 5. Obtain walking oximetry 6. Requested images from CTA completed at [facility] for personal review IMPRESSIONS: 1. Acute asthma exacerbation Working diagnosis is acute asthma exacerbation. However, patient has reported over the 6 months prior to hospitalization that steroids are not working anymore. This would be concerning for a secondary mimic complicating overall condition. Patient can be continued on bronchodilators, but will be transition to p.o. steroids. This will likely need to be weaned over the next 12 to 14 days given protracted high-dose steroids. However work-up for mimicker such as congestive heart failure, pulmonary hypertension, vocal cord dysfunction and bronchiectasis. Patient had an echocardiogram at [facility] that was unremarkable. Will obtain a walking oximetry to see if patient has significant desaturation with ambulation. CTA was recently completed at outside facility and did not mention bronchiectasis, but this will have to be reviewed as an outpatient. Elevated BNP is not away seen with diastolic dysfunction, so would continue with diuretics for now. Patient with significant improvement following diuretics. Patient may benefit from outpatient work-up for diastolic dysfunction. 2. Uncontrolled diabetes mellitus Patient with frequent prednisone burst leading to uncontrolled diabetes mellitus. Blood sugars are currently over 300 and likely leading to an element of patient's discomfort with going home. Will increase Lantus therapy. Sliding scale insulin in the interim. 3. Morbid obesity/uncontrolled MARCO/poor compliance with follow-up visits Complicates care, management, recovery and prognosis. Patient can be initiated on AutoPap with sleep. Patient did have significant desaturation during sleep study, which can lead to the development of diastolic dysfunction and pulmonary hypertension with noncompliance. Patient has not been following up in the office and cancels most of her appointments. Stressed the importance of outpatient follow-up to avoid inpatient hospitalizations. Patient is planning on having bariatric surgery, which should help her overall condition, but is complicated by her frequent need for steroids. Subjective Subjective Patient feels subjectively improved compared to yesterday. Patient was able to tolerate CPAP overnight without difficulty. Patient with much less wheezing, but still having coughing this morning. Patient has had significantly elevated blood sugars. Objective Data Objective Data Outside echocardiogram was relatively unremarkable with a preserved EF and only slightly elevated pulmonary artery pressures. Patient did have some right atrial enlargement. Vital Signs: Vital Signs Temp Pulse Resp BP Pulse Ox 36.6 C 86 16 164/82 H 94 11/15/20 06:17 11/15/20 06:17 11/15/20 06:17 11/15/20 06:17 11/15/20 06:17 Oxygen Delivery Method Room Air Weight: 112.037 kg Body Mass Index (BMI) 42.4 Intake & Output: Intake and Output for Last 24 Hours 11/13/20 11/14/20 11/15/20 23:59 23:59 23:59 Intake Total 800 / 800 2250 / 2250 400 / 400 Output Total 400 / 400 1500 / 1500 Balance 400 / 400 750 / 750 400 / 400 Lab / Micro Data Result Diagrams: 11/15/20 05:35 11/15/20 05:35 Labs: Laboratory Results - last 24 hr 11/14/20 11/14/20 11/14/20 06:41 06:41 06:41 WBC 16.5 H RBC 4.83 Hgb 14.7 Hct 43.7 MCV 90.5 MCH 30.4 MCHC 33.6 RDW Std Deviation 42.6 RDW Coeff of Rut 12.8 Plt Count 253 MPV 9.9 Immature Gran % (Auto) 3.000 H Neut % (Auto) 79.2 H Lymph % (Auto) 12.9 L [place] % (Auto) 4.5 Eos % (Auto) 0.0 Baso % (Auto) 0.4 Absolute Neuts (auto) 13.1 H Absolute Lymphs (auto) 2.13 Nucleated RBC % 0 Sodium 133 L Potassium 3.9 Chloride 99 Carbon Dioxide 26.0 Anion Gap 8 BUN 26 H Creatinine 1.13 H Estim Creat Clear Calc 52.58 Est GFR (MDRD) Af Amer 66 Est GFR (MDRD) Non-Af 55 L BUN/Creatinine Ratio 23.0 H Glucose 338 H Hemoglobin A1c 7.7 H Calcium 9.7 POC Glucose 11/14/20 11/14/20 11/14/20 06:43 11:33 15:47 WBC RBC Hgb Hct MCV MCH MCHC RDW Std Deviation RDW Coeff of Rut Plt Count MPV Immature Gran % (Auto) Neut % (Auto) Lymph % (Auto) [place] % (Auto) Eos % (Auto) Baso % (Auto) Absolute Neuts (auto) Absolute Lymphs (auto) Nucleated RBC % Sodium Potassium Chloride Carbon Dioxide Anion Gap BUN Creatinine Estim Creat Clear Calc Est GFR (MDRD) Af Amer Est GFR (MDRD) Non-Af BUN/Creatinine Ratio Glucose Hemoglobin A1c Calcium POC Glucose 346 H 490 H* 414 H 11/14/20 11/14/20 11/15/20 21:21 21:41 05:35 WBC 17.0 H RBC 4.84 Hgb 14.8 Hct 43.6 MCV 90.1 MCH 30.6 MCHC 33.9 RDW Std Deviation 41.6 RDW Coeff of Rut 12.6 Plt Count 248 MPV 9.9 Immature Gran % (Auto) 3.600 H Neut % (Auto) 81.7 H Lymph % (Auto) 9.7 L [place] % (Auto) 4.8 Eos % (Auto) 0.0 Baso % (Auto) 0.2 Absolute Neuts (auto) 13.9 H Absolute Lymphs (auto) 1.64 Nucleated RBC % 0 Sodium Potassium Chloride Carbon Dioxide Anion Gap BUN Creatinine Estim Creat Clear Calc Est GFR (MDRD) Af Amer Est GFR (MDRD) Non-Af BUN/Creatinine Ratio Glucose 500 H* Hemoglobin A1c Calcium POC Glucose > 500 H* 11/15/20 11/15/20 05:35 06:29 WBC RBC Hgb Hct MCV MCH MCHC RDW Std Deviation RDW Coeff of Rut Plt Count MPV Immature Gran % (Auto) Neut % (Auto) Lymph % (Auto) [place] % (Auto) Eos % (Auto) Baso % (Auto) Absolute Neuts (auto) Absolute Lymphs (auto) Nucleated RBC % Sodium 134 L Potassium 4.6 Chloride 96 L Carbon Dioxide 31.0 Anion Gap 7 BUN 28 H Creatinine 1.14 H Estim Creat Clear Calc 52.11 Est GFR (MDRD) Af Amer 65 Est GFR (MDRD) Non-Af 54 L BUN/Creatinine Ratio 24.6 H Glucose 363 H Hemoglobin A1c Calcium 10.1 POC Glucose 367 H Physical Exam Const alert, oriented x3, no apparent distress and well nourished General Appearance: cooperative and well developed Nutritional Appearance: morbidly obese HEENT normocephalic, head/scalp atraumatic and moist oral mucous membranes Eyes PERRL and EOMs intact bilaterally Neck full ROM and no lymphadenopathy Chest inspection of chest normal Resp normal respiratory effort and no use of accessory muscles Effort and Inspection: able to speak in complete sentences and symmetric chest movement Auscultation: diminished lung sounds; Negative for rales, rhonchi or wheezes Percussion: Negative for dullness Cardio regular rate, regular rhythm, S1 normal heart sound, S2 normal heart sound, no murmurs, no rub and no gallops Cardio Narrative: Normal sinus rhythm on telemetry GI normal to inspection, nondistended, normoactive bowel sounds no CVA tenderness Extremity General Extremity: edema bilateral lower extremity Details: trace; Negative for cyanosis Skin no rashes or lesions noted Neuro oriented x3, CN's II-XII intact bilaterally, moves all extremities and no focal motor deficits Psych cooperative and affect normal Charges/Coding Visit Charges Inpatient E&M: 84577 Subs Hosp L2
[2020-11-15] MEDS: predniSONE 20 MG Tablet 40 MG PO (08:35)
[2020-11-15] MEDS: Nystatin Powder 15gm Bottle 1 APPLIC TOPICAL ×2 (09:52→19:54)
[2020-11-15] MEDS: Enoxaparin 40 MG/0.4 ML Syringe SC (09:52)
[2020-11-15] MEDS: Furosemide 40 MG/4 ML Vial IV ×2 (09:52→18:10)
--- NOTE | 2020-11-15 10:19 | PCM.PN.HOSP ---
Documented by User: Donnell CHOWDARY 11/15/20 10:31 Subjective Subjective Patient is a 50-year-old female comfortably resting in bed, alert and orient x3. Patient reports improvement of her shortness of breath from admission. Denies chest pain, palpitations, hemoptysis, sputum production, fever, chills, N/V/D. Objective Data Objective Data Vital Signs: Vital Signs Temp Pulse Resp BP Pulse Ox 98.1 F 84 16 138/76 H 94 11/15/20 09:56 11/15/20 09:56 11/15/20 09:56 11/15/20 09:56 11/15/20 09:56 Oxygen Delivery Method Room Air Weight: 247 lb Body Mass Index (BMI) 42.4 Intake & Output: Intake and Output for Last 24 Hours 11/13/20 11/14/20 11/15/20 23:59 23:59 23:59 Intake Total 800 / 800 2250 / 2250 400 / 400 Output Total 400 / 400 1500 / 1500 Balance 400 / 400 750 / 750 400 / 400 Lab / Micro Data Result Diagrams: 11/15/20 05:35 11/15/20 05:35 Labs: Laboratory Results - last 24 hr 11/14/20 11/14/20 11/14/20 06:41 11:33 15:47 WBC RBC Hgb Hct MCV MCH MCHC RDW Std Deviation RDW Coeff of Rut Plt Count MPV Immature Gran % (Auto) Neut % (Auto) Lymph % (Auto) [place] % (Auto) Eos % (Auto) Baso % (Auto) Absolute Neuts (auto) Absolute Lymphs (auto) Nucleated RBC % Sodium Potassium Chloride Carbon Dioxide Anion Gap BUN Creatinine Estim Creat Clear Calc Est GFR (MDRD) Af Amer Est GFR (MDRD) Non-Af BUN/Creatinine Ratio Glucose Hemoglobin A1c 7.7 H Calcium POC Glucose 490 H* 414 H 11/14/20 11/14/20 11/15/20 21:21 21:41 05:35 WBC 17.0 H RBC 4.84 Hgb 14.8 Hct 43.6 MCV 90.1 MCH 30.6 MCHC 33.9 RDW Std Deviation 41.6 RDW Coeff of Rut 12.6 Plt Count 248 MPV 9.9 Immature Gran % (Auto) 3.600 H Neut % (Auto) 81.7 H Lymph % (Auto) 9.7 L [place] % (Auto) 4.8 Eos % (Auto) 0.0 Baso % (Auto) 0.2 Absolute Neuts (auto) 13.9 H Absolute Lymphs (auto) 1.64 Nucleated RBC % 0 Sodium Potassium Chloride Carbon Dioxide Anion Gap BUN Creatinine Estim Creat Clear Calc Est GFR (MDRD) Af Amer Est GFR (MDRD) Non-Af BUN/Creatinine Ratio Glucose 500 H* Hemoglobin A1c Calcium POC Glucose > 500 H* 11/15/20 11/15/20 05:35 06:29 WBC RBC Hgb Hct MCV MCH MCHC RDW Std Deviation RDW Coeff of Rut Plt Count MPV Immature Gran % (Auto) Neut % (Auto) Lymph % (Auto) [place] % (Auto) Eos % (Auto) Baso % (Auto) Absolute Neuts (auto) Absolute Lymphs (auto) Nucleated RBC % Sodium 134 L Potassium 4.6 Chloride 96 L Carbon Dioxide 31.0 Anion Gap 7 BUN 28 H Creatinine 1.14 H Estim Creat Clear Calc 52.11 Est GFR (MDRD) Af Amer 65 Est GFR (MDRD) Non-Af 54 L BUN/Creatinine Ratio 24.6 H Glucose 363 H Hemoglobin A1c Calcium 10.1 POC Glucose 367 H Physical Exam Const alert, oriented x3 and no apparent distress HEENT head/scalp atraumatic and moist oral mucous membranes Head and Scalp: normocephalic Eyes EOMs intact bilaterally and conjunctivae normal Neck no lymphadenopathy, supple and no JVD Resp normal respiratory effort, no retractions and no use of accessory muscles Cardio regular rate, regular rhythm, no murmurs and no JVD GI normal to inspection, nondistended, normoactive bowel sounds, soft to palpation and non-tender Extremity normal to inspection, full ROM and no clubbing, cyanosis or edema Skin no rashes or lesions noted, no wounds, skin turgor normal and no jaundice Neuro CN's II-XII intact bilaterally Psych affect normal Assessment & Plan Assessment/Plan (1) Acute asthma exacerbation: (2) MARCO (obstructive sleep apnea): (3) Obesity: QUALIFIERS: Body mass index: BMI 40.0-44.9 Obesity classification: adult class 3 (BMI >= 40) Obesity type: due to excess calories Serious obesity comorbidity presence: with serious comorbidity Qualified Code(s): E66.01 - Morbid (severe) obesity due to excess calories; Z68.41 - Body mass index [BMI]40.0-44.9, adult PLAN: Day three: See subjective. Discharge planning: No home health care needs identified, patient to be discharged home when medically ready. Possible discharge on 11/15/2020. 1) Acute asthma exacerbation. Pulmonology following: Continue treating for acute asthma exacerbation however consider other diagnoses given chronicity of shortness of breath. Echocardiogram completed on 11/13 demonstrated Normal LV size and systolic function, an estimated EF of 60-65%, mildly dilated RA and a small pericardial effusion w/ no evidence of hemodyanic compromise. Plan; continue bronchodilators, transition from methylprednisolone to prednisone therapy, hold Biologics while admitted and continue diuretics. 2) MARCO Patient has CPAP at home, however his CPAP was recently recalled, patient is working with the [email or web address] to obtain a new machine. 3) DM2 Blood sugars have remained elevated above 300 while being admitted. Hemoglobin A1c 7.7. Plan; increase basal insulin due to ongoing hyperglycemia while admitted, continue Accu-Cheks 4) Weight is currently 247 pounds with a BMI of 42.4. Patient is scheduled for bariatric surgery at [facility] on December 02, 2020. Patient was advised that she needs to be off of steroid therapy for 7 to 10 days prior to surgery. DVT prophylaxis - lovenox Patient seen by Donnell Chao PA-C, under the supervision of Dr. Mota. Documented by User: Dr. Christiana Mota MD 11/15/20 13:11 Objective Data Lab / Micro Data Result Diagrams: 11/15/20 05:35 11/15/20 05:35 Charges/Coding Addendum Addendum: Patient seen by Donnell Chao PA-C under my supervision Patient seen and examined. She feels better today and feels her breathing is getting better. Her wheezing is improved and her coughing has also improved. Review of systems otherwise negative. O/E: Const alert, oriented x3 and no apparent distress General Appearance: cooperative HEENT normocephalic, head/scalp atraumatic and hearing grossly normal bilaterally Eyes PERRL, EOMs intact bilaterally and conjunctivae normal Neck no lymphadenopathy, supple and no JVD Resp Resp Narrative: mildly diminished breath sounds bibasally, no wheezing or rhonchi; on room air Cardio regular rate, regular rhythm, S1 normal heart sound, S2 normal heart sound and no murmurs GI normal to inspection, nondistended, normoactive bowel sounds, soft to palpation, non-tender and non-distended Extremity normal to inspection, full ROM and no clubbing, cyanosis or edema Peripheral Pulses: Yes pulses 2+ throughout Skin no rashes or lesions noted Neuro oriented x3 Sensorium / Orientation: awake and alert Psych affect normal Patient is doing much better. She however wants to stay one more day to feel better about going home. COntinue IV solumedrol and breathing treatment with bronchodilators and diuresis with lasix. On insulin lantus as well as ISS for hyperglycemia from steroids. 2D echo done at [facility] showed preserved EF adn mildly elevated pulmonary artery pressures. She was counseled about need for close follow up with pulmonology on outpatient basis. Rest as per Donnell Chao PA-C's note, which I have reviewed and endorsed. Visit Charges Inpatient E&M: 53471 Subs Hosp L2
[2020-11-15 12:05] LABS: Bedside Glucose 488 mg/dL (70-110)
[2020-11-15 17:04] LABS: Bedside Glucose 334 mg/dL (70-110)
[2020-11-15] MEDS: Senna/Docusate Sodium 1 Tablet 2 TABLET PO (19:53)
[2020-11-15] MEDS: Acetaminophen 325 MG Tablet 650 MG PO (19:53)
[2020-11-15] MEDS: Mupirocin Ointment 22gm Tube 1 APPLIC TOPICAL (22:55)
[2020-11-15] MEDS: guaiFENesin 1,200 MG Tablet 1200 MG PO (22:56)
[2020-11-15 23:11] LABS: Bedside Glucose 338 mg/dL (70-110)
[2020-11-16] VITALS (10 sets, daily range): BP systolic 120–142; BP diastolic 68–77; PULSE 68–98; RESP 18–20; TEMP 36.1–36.7; O2SAT 93–97
[2020-11-16] MEDS: LORazepam 1 MG Tablet PO ×2 (00:15→06:42)
[2020-11-16] MEDS: Acetaminophen 325 MG Tablet 650 MG PO (06:42)
[2020-11-16 06:55] LABS: Bedside Glucose 141 mg/dL (70-110)
[2020-11-16 07:03] LABS: Absolute Lymphocyte Count 4.91 X10^3/uL (0.83-4.51); Absolute Neutrophil Count 11.6 X10^3/uL (2.0-7.7); Basophil# 0.11 X10^3/uL; Basophil% 0.6 % (0-1); Eosinophil# 0.21 X10^3/uL; Eosinophils% 1.1 % (0-5); Hematocrit 45.8 % (37-47); Hemoglobin 15.7 g/dL (12.0-15.0); Lymphocyte # 4.91 X10^3/ul (0.83-4.51); Lymphocyte % 26.8 % (19-41); Mean Corp Hgb Conc 34.3 g/dL (32-36); Mean Corpuscular Hgb 30.5 pg (27.0-32.0); Mean Corpuscular Volume 88.9 fL (81-99); Mean Platelet Vol. 9.7 fl (6.2-12.0); Monocyte# 0.85 X10^3/uL; Monocyte% 4.6 % (0-10); NRBC Flagged by Analyzer 0 % (0-5); Neutrophil # 11.58 X10^3/uL (2.7-7.7); Neutrophil % 63.3 % (47-70); Platelet Count 254 K/mm3 (150-450); RBC Distribution Width CV 12.6 % (11.6-14.6); RBC Distribution Width SD 41.4 fl (35.1-43.9); Red Blood Count 5.15 M/mm3 (4.2-5.4); White Blood Count 18.3 K/mm3 (4.4-11.0)
[2020-11-16 07:23] LABS: Anion Gap 7 (5-15); BUN 33 mg/dL (7-18); BUN/Creat Ratio 34.8 RATIO (10-20); Calcium,Total 9.8 mg/dL (8.5-10.1); Chloride 97 mmol/L (98-107); Creatinine, Serum 0.95 mg/dL (0.55-1.02); EST Glomerular Filtration Rate 67 mL/min (>60); Est Glom Filt Rate - Afr Amer 81 mL/min (>60); Estimated Creatinine Clearance 62.54 ml/min; Glucose 128 mg/dL (74-106); Potassium 2.6 mmol/L (3.5-5.1); Sodium Level 136 mmol/L (136-145)
[2020-11-16] MEDS: Ipratropium/Albuterol Sulfate 3 ML AMPUL.NEB INHALATION ×2 (07:28→11:20)
[2020-11-16] MEDS: 0.9% Saline Lock 10 ML Syringe IV ×2 (09:11→10:00)
[2020-11-16] MEDS: Furosemide 40 MG/4 ML Vial IV (09:11)
[2020-11-16] MEDS: Potassium Chloride Oral Tablet 20 MEQ 40 MEQ PO ×2 (09:11→13:37)
[2020-11-16] MEDS: Mupirocin Ointment 22gm Tube 1 APPLIC TOPICAL (09:11)
[2020-11-16] MEDS: Potassium Chloride 10mEq/100mL 10 MEQ/100 ML IV.SOLN. 100 MEQ IV BOLUS (09:11)
[2020-11-16] MEDS: guaiFENesin 1,200 MG Tablet 1200 MG PO (09:11)
[2020-11-16] MEDS: Nystatin Powder 15gm Bottle 1 APPLIC TOPICAL (09:12)
[2020-11-16] MEDS: Enoxaparin 40 MG/0.4 ML Syringe SC (09:12)
[2020-11-16] MEDS: predniSONE 20 MG Tablet 40 MG PO (09:17)
[2020-11-16] MEDS: Potassium Chloride Oral Tablet 20 MEQ PO (10:00)
--- NOTE | 2020-11-16 10:11 | RAD_ITS ---
EXAM: XR LEFT HAND, 2 VIEWS : 1970 CLINICAL INDICATION: Cellulits, possible infection distal index finger TECHNIQUE: Frontal and lateral views of the left hand. This report was created using panOpen report generation technology. COMPARISON: None. FINDINGS: BONES/JOINTS: Unremarkable. No acute fracture. No subluxation. Normal alignment. Preservation of the joint space. No sclerotic or destructive changes observed. SOFT TISSUES: Unremarkable. No soft tissue swelling or gas. No radiopaque foreign body. RAD/Hand 2 Views IMPRESSION: Negative left hand x-rays. at 1600 Reported and signed by: Horacio Diallo MD Electronically Signed: Horacio Diallo MD at 15:59 EDT Tel , Service support ,
--- NOTE | 2020-11-16 10:39 | PCM.DC ---
Discharge Instructions Diet Discharge Diet: No restrictions Activity Discharge Activity: Return to Normal Activity Follow Up Care Please Follow Up With: Primary care provider When: Within the next two weeks. Test Results: Test results from this visit will be discussed in further detail at your follow-up appointment, if applicable. Discharge Plan Admission Admit Date/Time: 11/13/20 16:21 Primary Reason for Your Visit: Asthma exacerbation Attending Provider: Debbie Kerr Primary Care Provider: Samir Wolfe NP Consulting Providers: Ascencion Durbin ; Kyle Dudley ; Linda Otero CASTING COORDINATOR Discharge Orders/Prescriptions Prescriptions: New prednisone 20 mg tablet 40 mg PO DAILY Qty: 6 RF: 0 doxycycline monohydrate 100 mg capsule 100 mg PO BID Qty: 20 RF: 0 Continued albuterol sulfate 2.5 mg /3 mL (0.083 %) solution for nebulization 2.5 mg INHALATION Q6H PRN PRN (Reason: BREATHING) RF: 0 ipratropium-albuterol 0.5 mg-3 mg(2.5 mg base)/3 mL solution for nebulization 3 ml INHALATION Q4H PRN PRN (Reason: SOB &/OR WHEEZING) Qty: 180 RF: 6 (DME) Disability Placard See Rx Instructions .Route .MEDSUPPLY Qty: 1 RF: 0 insulin lispro protamin-lispro 100 unit/mL (75-25) insulin pen SUBCUT RF: 0 Fasenra Pen 30 mg/mL auto-injector 30 mg SC Q8W Qty: 1 RF: 9 albuterol sulfate [ProAir HFA] 90 mcg/actuation HFA aerosol inhaler 2 puff INHALATION Q4H PRN (Reason: shortness of breath or wheezing) Qty: 18 RF: 6 Referrals / Follow Up: Kyle Dudley DO [STAFF PHYSICIAN] - Within 2 Weeks Samir Wolfe NP, CASTING COORDINATOR-C [Primary Care Provider] - Within 2 Weeks Disposition Disposition (needs filled in before D/C Order can be placed): Home, Self Care
--- NOTE | 2020-11-16 10:49 | PN.CC_ITS ---
Assessment & Plan Assessment/Plan (1) Acute asthma exacerbation: (2) Seasonal allergies: (3) MARCO (obstructive sleep apnea): PLAN: RECOMMENDATIONS: 1. Continue diuretics as tolerated 2. Continue Lantus for hyperglycemia 3. Wean prednisone therapy 4. No Biologics while hospitalized 5. Obtain walking oximetry prior to discharge 6. Ok to discharge from a pulmonary perspective IMPRESSIONS: 1. Acute asthma exacerbation vs Acute Diastolic CHF Working diagnosis is acute asthma exacerbation. However, patient has reported over the 6 months prior to hospitalization that steroids are not working anymore. This would be concerning for a secondary mimic complicating overall condition. Patient can be continued on bronchodilators, but will be transition to p.o. steroids. This will likely need to be weaned over the next 1 2 to 14 days given protracted high-dose steroids. However work-up for mimicker such as congestive heart failure, pulmonary hypertension, vocal cord dysfunction and bronchiectasis. Patient had an echocardiogram at [facility] that was unremarkable. Patient's response to diuretics is suggestive of congestive heart failure versus pulmonary hypertension as an etiology. Patient can likely be d ischarged from a pulmonary perspective once potassium is repleted. Patient should follow-up in our office in 2 weeks to discuss plan of care moving forward 2. Uncontrolled diabetes mellitus Patient with frequent prednisone burst leading to uncontrolled diabetes mellitus. Blood sugars are currently over 300 and likely leading to an element of patient's discomfort with going home. Will increase Lantus therapy. Sliding scale insulin in the interim. 3. Morbid obesity/uncontrolled MARCO/poor compliance with follow-up visits Complicates care, management, recovery and prognosis. Patient can be initiated on AutoPap with sleep. Patient did have significant desaturation during sleep study, which can lead to the development of diastolic dysfunction and pulmonary hypertension with noncompliance. Patient has not been following up in the office and cancels most of her appointments. Stressed the importance of outpatient follow-up to avoid inpatient hospitalizations. Patient is planning on having bariatric surgery, which should help her overall condition, but is complicated by her frequent need for steroids. Objective Data Objective Data Vital Signs: Vital Signs Temp Pulse Resp BP Pulse Ox 36.4 C L 80 18 120/70 94 11/16/20 06:52 11/16/20 07:28 11/16/20 07:28 11/16/20 06:52 11/16/20 07:28 Oxygen Delivery Method Room Air Weight: 112.037 kg Body Mass Index (BMI) 42.4 Intake & Output: Intake and Output for Last 24 Hours 11/14/20 11/15/20 11/16/20 23:59 23:59 23:59 Intake Total 2250 / 2250 720 / 720 580 / 580 Output Total 1500 / 1500 Balance 750 / 750 720 / 720 580 / 580 Lab / Micro Data Result Diagrams: 11/16/20 06:16 11/16/20 06:16 Labs: Laboratory Results - last 24 hr 11/15/20 11/15/20 11/15/20 11:51 16:58 22:58 WBC RBC Hgb Hct MCV MCH MCHC RDW Std Deviation RDW Coeff of Rut Plt Count MPV Immature Gran % (Auto) Neut % (Auto) Lymph % (Auto) [place] % (Auto) Eos % (Auto) Baso % (Auto) Absolute Neuts (auto) Absolute Lymphs (auto) Nucleated RBC % Sodium Potassium Chloride Carbon Dioxide Anion Gap BUN Creatinine Estim Creat Clear Calc Est GFR (MDRD) Af Amer Est GFR (MDRD) Non-Af BUN/Creatinine Ratio Glucose Calcium POC Glucose 488 H* 334 H 338 H 11/16/20 11/16/20 11/16/20 06:16 06:16 06:37 WBC 18.3 H RBC 5.15 Hgb 15.7 H Hct 45.8 MCV 88.9 MCH 30.5 MCHC 34.3 RDW Std Deviation 41.4 RDW Coeff of Rut 12.6 Plt Count 254 MPV 9.7 Immature Gran % (Auto) 3.600 H Neut % (Auto) 63.3 Lymph % (Auto) 26.8 [place] % (Auto) 4.6 Eos % (Auto) 1.1 Baso % (Auto) 0.6 Absolute Neuts (auto) 11.6 H Absolute Lymphs (auto) 4.91 H Nucleated RBC % 0 Sodium 136 Potassium 2.6 L* Chloride 97 L Carbon Dioxide 32.0 Anion Gap 7 BUN 33 H Creatinine 0.95 Estim Creat Clear Calc 62.54 Est GFR (MDRD) Af Amer 81 Est GFR (MDRD) Non-Af 67 BUN/Creatinine Ratio 34.8 H Glucose 128 H Calcium 9.8 POC Glucose 141 H Physical Exam Const alert, oriented x3, no apparent distress and well nourished General Appearance: cooperative and well developed Nutritional Appearance: morbidly obese HEENT normocephalic, head/scalp atraumatic and moist oral mucous membranes Eyes PERRL and EOMs intact bilaterally Neck full ROM and no lymphadenopathy Chest inspection of chest normal Resp normal respiratory effort and no use of accessory muscles Effort and Inspection: able to speak in complete sentences and symmetric chest movement Auscultation: diminished lung sounds; Negative for rales, rhonchi or wheezes Percussion: Negative for dullness Cardio regular rate, regular rhythm, S1 normal heart sound, S2 normal heart sound, no murmurs, no rub and no gallops Cardio Narrative: Normal sinus rhythm on telemetry GI normal to inspection, nondistended, normoactive bowel sounds no CVA tenderness Extremity General Extremity: edema bilateral lower extremity Details: trace; Negative for cyanosis Skin no rashes or lesions noted Neuro oriented x3, CN's II-XII intact bilaterally, moves all extremities and no focal motor deficits Psych cooperative and affect normal Charges/Coding Visit Charges Inpatient E&M: 07419 Subs Hosp L2
[2020-11-16] MEDS: Insulin Lispro 100 UNIT/ML INSULN.PEN SC (11:06)
[2020-11-16 11:10] LABS: Bedside Glucose 386 mg/dL (70-110)
[2020-11-16] MEDS: Doxycycline 100 MG CAPSULE PO (12:38)
[2020-11-16 12:46] LABS: Anion Gap 8 (5-15); BUN 33 mg/dL (7-18); BUN/Creat Ratio 26.2 RATIO (10-20); Calcium,Total 9.4 mg/dL (8.5-10.1); Chloride 89 mmol/L (98-107); Creatinine, Serum 1.26 mg/dL (0.55-1.02); EST Glomerular Filtration Rate 48 mL/min (>60); Est Glom Filt Rate - Afr Amer 58 mL/min (>60); Estimated Creatinine Clearance 47.15 ml/min; Glucose 362 mg/dL (74-106); Potassium 3.2 mmol/L (3.5-5.1); Sodium Level 133 mmol/L (136-145)
--- NOTE | 2020-11-16 13:35 | PCM.DC.SUM ---
Documented by User: Donnell CHOWDARY 11/16/20 13:41 Providers Date of Admission: 11/13/20 Primary Care Physician: LUDMILA Kwong Consultations 11/13/20 16:26 Consult: Communications Director / Pulmonary Medicine Routine Consulting Provider: Pulmonary Medicine shahnaz [place] Reason for Consult: acute asthma exacerbation EMERGENT Consult: No MD Notified: Yes Date Notified: 11/13/20 Time Notified: 16:26 Method of Notification: Text Reason For Visit: ACUTE ASTHMA EXACERBATION Diagnosis Discharge Diagnosis (1) Acute asthma exacerbation: Status: Acute Code(s): J45.901 - Unspecified asthma with (acute) exacerbation (2) Seasonal allergies: Status: Acute Code(s): J30.2 - Other seasonal allergic rhinitis (3) MARCO (obstructive sleep apnea): Status: Chronic Code(s): G47.33 - Obstructive sleep apnea (adult) (pediatric) Medications at Discharge Home Medications albuterol sulfate 2.5 mg INHALATION Q6H PRN PRN ml 10/04/18 ipratropium 0.5 mg-albuterol 3 mg (2.5 mg base)/3 mL nebulization soln 3 ml INHALATION Q4H PRN PRN #180 ml 02/04/20 benralizumab 30 mg/mL subcutaneous auto-injector 30 mg SC Q8W #1 ml 03/24/20 Disability Placard #1 ea 10/01/20 albuterol sulfate 90 mcg/actuation aerosol inhaler 2 puff INHALATION Q4H PRN #18 g 10/21/20 insulin lispro protamin-lispro SUBCUT 11/13/20 doxycycline monohydrate 100 mg PO BID #20 cap 11/16/20 prednisone 40 mg PO DAILY #6 tab 11/16/20 Hospital Course Summary of Care Provided Minutes Spent on Discharge: 35 Hospital Course: Disposition: Patient to be discharged home as no home health care or therapy needs were identified. 1) Acute asthma exacerbation. Pulmonology following: Okay to discharge, wean prednisone. Patient ambulated on room air at 93%. Echocardiogram completed on 11/13 demonstrated Normal LV size and systolic function, an estimated EF of 60-65%, mildly dilated RA and a small pericardial effusion w/ no evidence of hemodyanic compromise. Plan; bronchodilators continued, 3 days of prednisone ordered at discharge to complete 5-day course, continue benralizumab, follow-up with primary care provider and garden center manager within the next few weeks. 2) MARCO Patient has CPAP at home, however his CPAP was recently recalled, patient is working with the company to obtain a new machine. 3) DM2 Hemoglobin A1c 7.7, not within goal. Home insulin regimen continued. Follow-up with primary care provider within the next 2 weeks. 4) morbid obesity Weight is currently 247 pounds with a BMI of 42.4. Patient is scheduled for bariatric surgery at [facility] on December 02, 2020. Patient was advised that she needs to be off of steroid therapy for 7 to 10 days prior to surgery. 5) cellulitis of the left index finger Patient has developed a localized skin infection of the left index finger in the area where Susan Escalona obtained patient's blood sugar. This provider was able to express a small amount of white discharge from area. Mildly tender to palpation and erythematous. No fluctuance noted. X-ray of the left hand was unremarkable and demonstrated no evidence of abscess. Plan; discharged on doxycycline 100 mg p.o. twice daily x 10 days, follow-up with primary care provider within the next 2 weeks. Patient seen by Donnell Chao PA-C, under the supervision of Dr. Kerr. Physical Exam Narrative Patient is a 50-year-old female comfortably resting in bed, alert and orient x3. Patient denies any change or progression in symptoms from yesterday. Denies chest pain, shortness of breath, palpitations, hemoptysis, sputum production, fever, chills, N/V/D. Const alert, oriented x3 and no apparent distress HEENT normocephalic, head/scalp atraumatic and hearing grossly normal bilaterally Eyes EOMs intact bilaterally and conjunctivae normal Neck no lymphadenopathy, supple and no JVD Resp normal respiratory effort, no retractions and no use of accessory muscles Auscultation: wheezes left upper and right upper Cardio regular rate, regular rhythm, no murmurs and no JVD GI normal to inspection, nondistended, normoactive bowel sounds, soft to palpation and non-tender Extremity normal to inspection, full ROM and no clubbing, cyanosis or edema Skin no rashes or lesions noted, no wounds and skin turgor normal Neuro CN's II-XII intact bilaterally Psych affect normal Weight / BMI Weight Weight: 247 lb Body Mass Index (BMI) 42.4 ABG / Lab / Microbiology Data Result Diagrams: 11/16/20 06:16 11/16/20 11:50 Laboratory: Laboratory Results - last 24 hr 11/15/20 11/15/20 11/16/20 16:58 22:58 06:16 WBC 18.3 H RBC 5.15 Hgb 15.7 H Hct 45.8 MCV 88.9 MCH 30.5 MCHC 34.3 RDW Std Deviation 41.4 RDW Coeff of Rut 12.6 Plt Count 254 MPV 9.7 Immature Gran % (Auto) 3.600 H Neut % (Auto) 63.3 Lymph % (Auto) 26.8 [place] % (Auto) 4.6 Eos % (Auto) 1.1 Baso % (Auto) 0.6 Absolute Neuts (auto) 11.6 H Absolute Lymphs (auto) 4.91 H Nucleated RBC % 0 Sodium Potassium Chloride Carbon Dioxide Anion Gap BUN Creatinine Estim Creat Clear Calc Est GFR (MDRD) Af Amer Est GFR (MDRD) Non-Af BUN/Creatinine Ratio Glucose Calcium POC Glucose 334 H 338 H 11/16/20 11/16/20 11/16/20 06:16 06:37 11:04 WBC RBC Hgb Hct MCV MCH MCHC RDW Std Deviation RDW Coeff of Rut Plt Count MPV Immature Gran % (Auto) Neut % (Auto) Lymph % (Auto) [place] % (Auto) Eos % (Auto) Baso % (Auto) Absolute Neuts (auto) Absolute Lymphs (auto) Nucleated RBC % Sodium 136 Potassium 2.6 L* Chloride 97 L Carbon Dioxide 32.0 Anion Gap 7 BUN 33 H Creatinine 0.95 Estim Creat Clear Calc 62.54 Est GFR (MDRD) Af Amer 81 Est GFR (MDRD) Non-Af 67 BUN/Creatinine Ratio 34.8 H Glucose 128 H Calcium 9.8 POC Glucose 141 H 386 H 11/16/20 11:50 WBC RBC Hgb Hct MCV MCH MCHC RDW Std Deviation RDW Coeff of Rut Plt Count MPV Immature Gran % (Auto) Neut % (Auto) Lymph % (Auto) [place] % (Auto) Eos % (Auto) Baso % (Auto) Absolute Neuts (auto) Absolute Lymphs (auto) Nucleated RBC % Sodium 133 L Potassium 3.2 L Chloride 89 L Carbon Dioxide 36.0 H Anion Gap 8 BUN 33 H Creatinine 1.26 H Estim Creat Clear Calc 47.15 Est GFR (MDRD) Af Amer 58 L Est GFR (MDRD) Non-Af 48 L BUN/Creatinine Ratio 26.2 H Glucose 362 H Calcium 9.4 POC Glucose D/C Instructions Discharge Diet: No restrictions Please Follow Up With: Primary care provider When: Within the next two weeks. Meaningful Use Info Meaningful Use Diagnoses (Choose all that apply): None applicable Discharge Plan Admission Admit Date/Time: 11/13/20 16:21 Primary Reason for Your Visit: Asthma exacerbation Attending Provider: Debbie Kerr Primary Care Provider: Samir Wolfe NP Consulting Providers: Ascencion Durbin ; Kyle Dudley ; Linda Otero ROCKET ENGINE TESTER Discharge Orders/Prescriptions Prescriptions: New prednisone 20 mg tablet 40 mg PO DAILY Qty: 6 RF: 0 doxycycline monohydrate 100 mg capsule 100 mg PO BID Qty: 20 RF: 0 Continued albuterol sulfate 2.5 mg /3 mL (0.083 %) solution for nebulization 2.5 mg INHALATION Q6H PRN PRN (Reason: BREATHING) RF: 0 ipratropium-albuterol 0.5 mg-3 mg(2.5 mg base)/3 mL solution for nebulization 3 ml INHALATION Q4H PRN PRN (Reason: SOB &/OR WHEEZING) Qty: 180 RF: 6 (DME) Disability Placard See Rx Instructions .Route .MEDSUPPLY Qty: 1 RF: 0 insulin lispro protamin-lispro 100 unit/mL (75-25) insulin pen SUBCUT RF: 0 Fasenra Pen 30 mg/mL auto-injector 30 mg SC Q8W Qty: 1 RF: 9 albuterol sulfate [ProAir HFA] 90 mcg/actuation HFA aerosol inhaler 2 puff INHALATION Q4H PRN (Reason: shortness of breath or wheezing) Qty: 18 RF: 6 Referrals / Follow Up: Kyle Dudley DO [STAFF PHYSICIAN] - Within 2 Weeks Samir Wolfe NP, ROCKET ENGINE TESTER-C [Primary Care Provider] - Within 2 Weeks Disposition Disposition (needs filled in before D/C Order can be placed): Home, Self Care Documented by User: Dr. Debbie Kerr DO 11/16/20 15:06 Providers Date of Admission: 11/13/20 Reason For Visit: ACUTE ASTHMA EXACERBATION Medications at Discharge Home Medications albuterol sulfate 2.5 mg INHALATION Q6H PRN PRN ml 10/04/18 ipratropium 0.5 mg-albuterol 3 mg (2.5 mg base)/3 mL nebulization soln 3 ml INHALATION Q4H PRN PRN #180 ml 02/04/20 benralizumab 30 mg/mL subcutaneous auto-injector 30 mg SC Q8W #1 ml 03/24/20 Disability Placard #1 ea 10/01/20 albuterol sulfate 90 mcg/actuation aerosol inhaler 2 puff INHALATION Q4H PRN #18 g 10/21/20 insulin lispro protamin-lispro SUBCUT 11/13/20 doxycycline monohydrate 100 mg PO BID #20 cap 11/16/20 prednisone 40 mg PO DAILY #6 tab 11/16/20 Hospital Course Operations None Procedures None Summary of Care Provided Minutes Spent on Discharge: 39 Hospital Course: Patient is a 50-year-old female who presented to the emergency department at [facility] on 11/09/2020 for shortness of breath. She has a history that includes eosinophilic asthma and IgE asthma for which she follows with Dr. Durbin. In the emergency department at [place] she was given IV Solu-Medrol and aerosols but had not improved. A BNP was done and was 50. She is to have bariatric surgery at [facility] soon and needs to be off prednisone for at least 14 days prior to surgery. A CTA of the chest was done at [facility] and was negative for any PE. It showed basilar scarring with no effusion or pneumothorax. She had alone increased her steroids to 90 mg daily and reported on admission that they are not working anymore but because of such high dosing we will taper them slowly at discharge by 10 mg every 5 days. She had an echo done at [facility] also it was unremarkable but was responsive to diuretics so we do suspect that there is a component of at least right-sided heart failure which would not be completely unsuspected given her morbid obesity, MARCO, and asthma. An ambulatory pulse ox was done and showed no desaturations and therefore home oxygen was not needed. We will continue Lantus for hyperglycemia and this may be able to wean with time as her steroids are decreased. We recommend follow-up with pulmonary in 2 weeks. She has a history of noncompliance and not showing up for outpatient appointments and it was distressed upon her at discharge the importance of following up especially given her on upcoming bariatric surgery. On the day of discharge it was noted she had a small abscess on the index finger of her right hand which she actually self expressed with her home insulin needles she states she got some drainage and is feeling better now that it has been drained but there is a small area of erythema. X-rays were performed and showed no signs consistent with remaining abscess. She was discharged on doxycycline for 7 days to complete a course of antibiotics with MRSA coverage. Physical Exam Const alert, oriented x3 and no apparent distress Constitutional Narrative: Morbidly obese white female sitting up in bed, appears uncomfortable and states it is related to her potassium infusion General Appearance: cooperative and comfortable HEENT normocephalic, head/scalp atraumatic, moist oral mucous membranes and oropharynx normal Eyes PERRL, EOMs intact bilaterally and conjunctivae normal Neck supple Neck Narrative: Trachea midline Resp normal respiratory effort, no retractions and no use of accessory muscles Resp Narrative: Diminished with few scattered end expiratory wheezes, patient also demonstrates forced upper airway wheeze Auscultation: wheezes; Negative for crackles, rales or rhonchi Cardio regular rate, regular rhythm, S1 normal heart sound, S2 normal heart sound, no murmurs, no rub, no gallops, no clicks and no JVD GI normal to inspection, nondistended, normoactive bowel sounds, soft to palpation, non-tender and non-distended Extremity normal to inspection, full ROM and no clubbing, cyanosis or edema Skin no wounds, skin turgor normal and no jaundice Skin Narrative: Index finger of left hand shows some mild erythema and ecchymosis about the size of a pinhead, mild tenderness but no drainage Neuro oriented x3, CN's II-XII intact bilaterally, moves all extremities and no focal motor deficits Sensorium / Orientation: awake, alert, oriented to person, oriented to place and oriented to time Speech: speech normal Psych Mood & Affect: anxious ABG / Lab / Microbiology Data Result Diagrams: 11/16/20 06:16 11/16/20 11:50 Discharge Plan Admission Admit Date/Time: 11/13/20 16:21 Primary Reason for Your Visit: Asthma exacerbation Attending Provider: Debbie Kerr Primary Care Provider: Samir Wolfe NP Consulting Providers: Ascencion Durbin ; Kyle Dudley ; Linda Otero ROCKET ENGINE TESTER Discharge Orders/Prescriptions Prescriptions: New prednisone 20 mg tablet 40 mg PO DAILY Qty: 6 RF: 0 doxycycline monohydrate 100 mg capsule 100 mg PO BID Qty: 20 RF: 0 Continued albuterol sulfate 2.5 mg /3 mL (0.083 %) solution for nebulization 2.5 mg INHALATION Q6H PRN PRN (Reason: BREATHING) RF: 0 ipratropium-albuterol 0.5 mg-3 mg(2.5 mg base)/3 mL solution for nebulization 3 ml INHALATION Q4H PRN PRN (Reason: SOB &/OR WHEEZING) Qty: 180 RF: 6 (DME) Disability Placard See Rx Instructions .Route .MEDSUPPLY Qty: 1 RF: 0 insulin lispro protamin-lispro 100 unit/mL (75-25) insulin pen SUBCUT RF: 0 Fasenra Pen 30 mg/mL auto-injector 30 mg SC Q8W Qty: 1 RF: 9 albuterol sulfate [ProAir HFA] 90 mcg/actuation HFA aerosol inhaler 2 puff INHALATION Q4H PRN (Reason: shortness of breath or wheezing) Qty: 18 RF: 6 Referrals / Follow Up: Kyle Dudley DO [STAFF PHYSICIAN] - Within 2 Weeks Samir Wolfe ROCKET ENGINE TESTER, ROCKET ENGINE TESTER-C [Primary Care Provider] - Within 2 Weeks Disposition Disposition (needs filled in before D/C Order can be placed): Home, Self Care Charges/Coding Visit Charges Inpatient E&M: 26017 Disch Hosp
== END 2020-11-16 15:20 | disposition home or self-care (01) | DRG 141 ==
PROVIDERS: Hospitalist; Physician Assistant; Admitting Provider Student in an Organized Health Care Education/Training Program; PCP Nurse Practitioner Primary Care; Visit Provider Internal Medicine
DX: J45.901 Unspecified asthma with (acute) exacerbation (principal); I31.3 Pericardial effusion (noninflammatory); E11.65 Type 2 diabetes mellitus with hyperglycemia; T38.0X5A Adverse effect of glucocorticoids and synthetic analogues, initial encounter; Y92.9 Unspecified place or not applicable; L03.012 Cellulitis of left finger; E66.01 Morbid (severe) obesity due to excess calories; G47.33 Obstructive sleep apnea (adult) (pediatric); Z68.41 Body mass index [BMI] 40.0-44.9, adult; Z87.891 Personal history of nicotine dependence; Z79.4 Long term (current) use of insulin; Z91.19 Patient's noncompliance with other medical treatment and regimen
CPT/HCPCS: 36415; 73120; 80048; 82947; 82962; 83036; 84484; 85025; 94640; 94660; 94667; 94668; 94762; 99251; A4216; G0463; J1940